=== PATIENT | female | born 1945 | race Caucasian/White ===

== ENCOUNTER 2024-09-09 20:58 | Outpatient (REF) | payer MEDICARE, SELFPAY | END 2024-09-09 20:59 | disposition home or self-care (01) | LOC: LAB 20:58 | PROVIDERS: Visit Provider Obstetrics & Gynecology | DX: Z01.419 Encounter for gynecological examination (general) (routine) without abnormal findings (principal) | CPT/HCPCS: 88175 ==

== ENCOUNTER 2024-09-24 09:50 | Outpatient (OUT) | payer MEDICARE, SELFPAY ==
--- OUTSIDE RECORDS SUMMARY | 2024-09-24 10:05 | XMS_ITS | CCD ---
Author Organization [facility] Care Team Providers Care Tool And Die Inspector Name Role Phone NURIA NIEVES Primary Care Unavailable REQUEST, DR SNEED LISTED Attending Unavaila ble REQUEST, DR SNEED LISTED Admitting Unavaila ble REQUEST, DR SNEED LISTED Consulting Unavaila ble PIOTR ., DR LANDAVERDE Consulting Unavailable NURIA NIEVES Primary Care Unavailable PIOTR ., DR LANDAVERDE Attending Unavailable PIOTR ., DR LANDAVERDE Admitting Unavailable KEELY, DR MARCUM Attending Unavailable KEELY, DR MARCUM Admitting Unavailable NURIA NIEVES Primary Care Unavailable KEELY, DR MARCUM Consulting Unavailable Niurka Riggs MD Unavailable [phone] Niurka Riggs MD Primary Care Provider Daniel TOW MOTOR MECHANIC, Stefania Somers Unavailable NIURKA RIGGS Attending Unavailable NIURKA RIGGS Attending Unavailable SAIMA SALDAÑA Attending Unavailable Medications Current Medications Medication Drug Class(es) Dates Sig (Normalized) Sig (Original) calcium carbonate 500 mg oral tablet (5 sources) calcium carbonat e (Os-Alberto) 1250 (500 Ca) MG tablet every 12 (twelve) hours. Active chondroitin sulfates 1200 mg / glucosamine sulfate 1500 mg oral capsule (5 sources) Glucosamine-Wilian gutierrez 500-400 MG capsule 1 (one) time each day at the same time. Active ciprofloxacin 500 mg oral tablet (2 sources) Quinolone Antimicrobial Start: 09-09-2024 End: 09-16-2024 take 1 tablet by mouth in the morning ciprofloxacin (Cipro) 500 MG tablet Indications: Urinary Tract Infection Take 1 tablet (500 mg) by mouth in the morning and 1 tablet (500 mg) before bedtime. Do all this for 7 days. 14 tablet 09/09/2024 09/16/2024 Active Fish Oils (5 sources) omega-3 (Fish Oi l) 500 MG capsule Oral Active omega-3 (Fish Oi l) 500 MG capsule Oral 0 Active lisinopril 10 mg oral tablet (5 sources) Angiotensin Converting Enzyme Inhibitor Start: 04-02-2024 take 1 tablet by mouth once daily lisinopril 10 MG tablet Indications: Primary hypertension (CMS/HCC) Take 1 tablet (10 mg) by mouth Daily 90 tablet 1 04/02/2024 Active Start: 10-20-2023 take 1 tablet by aron th once daily lisinopril 10 MG tablet Indications: Primary hypertension (CMS/HCC) TAKE ONE TABLET BY MOUTH DAILY 90 tablet 0 10/20/2023 Active loratadine 10 mg oral tablet (4 sources) loratadine (Clar itin) 10 MG tablet Take by mouth Active Multiple Vitamin (multivitam in) capsule (5 sources) Multiple Vitamin (multivitamin) capsule Orally Active Multiple Vitamin (multivitamin) capsule Orally 0 Active red yeast rice 600 mg oral capsule (5 sources) Red Yeast Rice 6 00 MG capsule Orally Active saccharomyces boulardii 250 mg oral capsule (5 sources) Saccharomyces parul ulardii (probiotic) 250 MG capsule Orally Active ubidecarenone 30 mg oral capsule (5 sources) co-enzyme Q-10 3 0 MG capsule 1 (one) time each day at the same time. Active verapamil hydrochloride 240 mg extended release oral tablet (6 sources) Calcium Channel Justino Start: take 1 tablet by mouth once daily verapamil SR (Calan SR) 240 MG ER tablet Indications: Chronic nonintractable headache, unspecified headache type Take 1 tablet (240 mg) by mouth Daily 90 tablet 1 04/02/2024 Active Start: 12-29-2023 take 1 tablet by aron th once daily verapamil SR (Calan SR) 240 MG ER tablet Indications: Chronic nonintractable headache, unspecified headache type TAKE ONE TABLET BY MOUTH DAILY 90 tablet 1 12/29/2023 Active Start: 11-28-2023 End: 12-29-2023 take 1 tablet by mouth once daily verapamil SR (Calan SR) 240 MG ER tablet Indications: Chronic nonintractable headache, unspecified headache type TAKE ONE TABLET BY MOUTH DAILY 30 tablet 0 11/28/2023 12/29/2023 Discontinued Problems Active Problems Problem Classification Problem Date Documented Date Episodic/Chronic Complications of surgical procedures or medical care (1 source) History of parathyroidectomy; 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] Onset: 05-05-2023 05-05-2023 Chronic Disorders of lipid metabolism (5 sources) Hypercholesterolemia; Translations: [Pure hypercholesterolemia, unspecified] Onset: 05-05-2023 05-05-2023 Chronic Essential hypertension (5 sources) Essential hypertension; Translations: [Essential (primary) hypertension] Onset: 05-05-2023 05-05-2023 Chronic Genitourinary symptoms and ill-defined conditions (2 sources) Urinary symptoms ; Translations: [Unspecified symptoms and signs involving the genitourinary system] 09-09-2024 Episodic Headache; including migraine (1 source) Headache; Translations: [Chronic nonintractable headache, unspecified headache type] 12-28-2023 Episodic Malaise and fatigue (5 sources) Fatigue; Translations: [Chronic fatigue, unspecified] Onset: 05-05-2023 05-05-2023 Chronic Menopausal disorders (5 sources) Disorder associated with menstruation AND/OR menopause; Translations: [Menopausal and female climacteric states] Onset: 05-05-2023 05-05-2023 Chronic Osteoporosis (2 sources) Postmenopausal osteoporosis; Translations: [Age-related osteoporosis without current pathological fracture] 09-09-2024 Chronic Other endocrine disorders (5 sources) Hyperparathyroidism; Translations: [Hyperparathyroidism, unspecified] Onset: 05-05-2023 05-05-2023 Chronic Other nervous system disorders (5 sources) Chronic pain; Translations: [Other chronic pain] Onset: 05-05-2023 05-05-2023 Chronic Other nutritional; endocrine; and metabolic disorders (5 sources) Hypercalcemia; Translations: [Hypercalcemia] Onset: 05-05-2023 05-05-2023 Chronic Other screening for suspected conditions (not mental disorders or infectious disease) (6 sources) Encounter for screening for malignant neoplasm of cervix; Translations: [Patient encounter status] Onset: 09-04-2022 Episodic Unclassified (3 sources) CONTACT W/AND (SUSP) EXPOS COVID-19; Translations: [CONTACT W/AND (SUSP) EXPOS COVID-19] Onset: 05-26-2022 Urinary tract infections (2 sources) Urinary tract infectious disease; Translations: [Urinary tract infection, site not specified] 09-09-2024 Episodic Past or Other Problems Problem Classification Problem Date Documented Da te Episodic/Chronic Immunizations and screening for infectious disease (1 source) Encounter for screening for human papillomavirus (HPV); Translations: [ENC SCREENING HUMAN PAPILLOMAVIRUS] Onset: 09-06-2022 Episodic Mood disorders (4 sources) Mood disorders Onset: 04-02-2024 04-02-2024 Other and unspecified benign neoplasm (4 sources) History of polyp of colon; Translations: [History of colon polyps] Onset: 04-27-2019 03-05-2024 Episodic Other bone disease and musculoskeletal deformities (5 sources) Osteopenia; Translations: [Other specified disorders of bone density and structure, unspecified site] Onset: 05-05-2023 05-05-2023 Episodic Other endocrine disorders (5 sources) Primary hyperparathyroidism; Translations: [Primary hyperparathyroidism] Onset: 05-05-2023 Resolved: 04-02-2024 05-05-2023 Chronic Other nutritional; endocrine; and metabolic disorders (5 sources) Decrease in appetite; Translations: [Anorexia] Onset: 05-05-2023 05-05-2023 Episodic Residual codes; unclassified (4 sources) History of parathyroidectomy; Translations: [Other specified postprocedural states] Onset: 05-05-2023 05-05-2023 Episodic Residual codes; unclassified (4 sources) Family history of cancer of colon; Translations: [Family history of malignant neoplasm of digestive organs] Onset: 04-27-2019 03-05-2024 Episodic Spondylosis; intervertebral disc disorders; other back problems (5 sources) Low back pain; Translations: [Low back pain] Onset: 05-05-2023 05-05-2023 Episodic Unclassified (1 source) CONTACT W/AND (SUSP) EXPOS COVID-19; Translations: [CONTACT W/AND (SUSP) EXPOS COVID-19] Onset: 05-22-2022 Results Test Name Value Interpretation Reference Range Facility IGP,APTIMA HPV,AGE GDLNon AGE GDLN ACOG TESTING Note . [facility] Comment on above: TESTS RESULT FLAG UN ITS REF RANGE LAB Clinician Provided Cytology Information Source.............Cervix;Endocervix No. of containers..01 ThinPrep Vial Age Maria Guadalupeo PORTEROG Maki... Note 01 <21 or >65 or no age provided FLAG LEGEND: L-Low Normal,H-High Normal,LL-Alert Low,HH-Alert High <-Panic Low,>-Panic High,A-Abnormal,AA-Critical Abnormal Performed at: 01 =G [facility] [address] [place] [address] Destini Marie MD, PAP IG (IMAGE GUIDED) Note . [facility] Comment on above: TESTS RESULT FLAG UN ITS REF RANGE LAB DIAGNOSIS: 02 NEGATIVE FOR INTRAEPITHELIAL LESION OR MALIGNANCY. CELLULAR CHANGES ASSOCIATED WITH ATROPHY ARE PRESENT. Specimen adequacy: 02 Satisfactory for evaluation. Endocervical and/or squamous metaplastic cells (endocervical component) are present. Performed by: 02 Pb Dorado, Forest Pathology Associate Professor ([facility]) . 02 Note: Note 02 The Pap smear is a screening test designed to aid in the detection of premalignant and malignant conditions of the uterine cervix. It is not a diagnostic procedure and should not be used as the sole means of detecting cervical cancer. Both false-positive and false-negative reports do occur. Test Methodology: Note 02 This liquid based ThinPrep(R) pap test was screened with the use of an image guided system. FLAG LEGEND: L-Low Normal,H-High Normal,LL-Alert Low,HH-Alert High <-Panic Low,>-Panic High,A-Abnormal,AA-Critical Abnormal Performed at: [address] [id number] Destini Marie MD, Performed at: =G - [facility] [address] [id number] Outdoor Adventure Leader: Destini Marie MD, Phone: [phone] Performed at: [facility] [id number] Outdoor Adventure Leader: Destini Marie MD, Phone: [phone] BRUSH-SPATULA CERVIX ENDOCERVIX [facility] Urinalysis macro (dipstick) panel (U)on 09-09-2024 Bilirubin, UA Negative Negative - 4(70) +++ mg/dL [facility] Blood, UA Positive Negative - 50 Andres/mcL [facility] Comment on above: trace Clarity, UA Clear [facility] Color, UA Yellow [facility] Glucose, UA Negative Negative - 1999(110) ++++ mg/dL [facility] Interpretation and review of laboratory results Abnormal [facility] Ketones, UA Negative Negative - 160(16) ++++ mg/dL [facility] Leukocytes, UA Trace Negative - 500+++ Brent/mcL [facility] Nitrite, UA Negative Negative - Positive [facility] pH, UA 7 5 - 9 [facility] Protein, UA Negative Negative - 1999(20) ++++ mg/dL [facility] Spec Grav, UA 1.015 1 - 1.03 [facility] Urobilinogen, UA 0.2 0.2 - 12 mg/dL [facility] CBC AUTO DIFFon 01-28-2023 BASO # 0.0 103/ul Normal 0.0-0.1 [facility] Comment on above: Performed By: #### D ATCBC #### [facility] [address] [place] [address] Dr. Zenon Carrillo Basophils/100 WBC (Bld) 0.8 % Normal 0.2-2.0 [facility] Comment on above: Performed By: #### D ATCBC #### [facility] [address] [place] [address] Dr. Zenon Carrillo EO # 0.1 103/ul Normal 0.0-0.7 [facility] Comment on above: Performed By: #### D ATCBC #### [facility] [address] [place] [address] Dr. Zenon Carrillo Eosinophils/100 WBC (Bld) 2.2 % Normal 0.9-7.0 [facility] Comment on above: Performed By: #### D ATCBC #### [facility] [address] [place] [address] Dr. Zenon Carrillo Erythrocyte distribution width (RBC) [Ratio] 12.2 % Normal 11.0-15.0 [facility] Comment on above: Performed By: #### D ATCBC #### [facility] [address] [place] [address] Dr. Zenon Carrillo Hematocrit (Bld) [Volume fraction] 40.0 % Normal 36.0-48.0 [facility] Comment on above: Performed By: #### D ATCBC #### [facility] [address] [place] [address] Dr. Zenon Carrillo Hemoglobin (Bld) [Mass/Vol] 13.5 g/dL Normal 12.0-16.0 [facility] Comment on above: Performed By: #### D ATCBC #### [facility] [address] [place] [address] Dr. Zenon Carrillo IG # 0.02 10e3/ul Normal 0.00-0.03 [facility] Comment on above: Performed By: #### D ATCBC #### [facility] [address] [place] [address] Dr. Zenon Carrillo IG % 0.4 % Normal 0.0-0.5 [facility] Comment on above: Performed By: #### D ATCBC #### [facility] [address] [place] [address] Dr. Zenon Carrillo LYMPH # 1.0 103/ul Critically low 1.2-3.8 [facility] Comment on above: Performed By: #### D ATCBC #### [facility] [address] [place] [address] Dr. eZnon Carrillo Lymphocytes/100 WBC (Bld) 19.8 % Critically low 20.5-60.0 [facility] Comment on above: Performed By: #### D ATCBC #### [facility] [address] [place] [address] Dr. Zenon Carrillo MCH (RBC) [Entitic mass] 31.5 pg Normal 26.7-34.0 [facility] Comment on above: Performed By: #### D ATCBC #### [facility] [address] [place] [address] Dr. Zenon Carrillo MCHC (RBC) [Mass/Vol] 33.8 g/dL Normal 29.9-35.2 [facility] Comment on above: Performed By: #### D ATCBC #### [facility] [address] [place] [address] Dr. Zenon Carrillo MCV (RBC) [Entitic vol] 93.5 fL Normal 81.0-99.0 [facility] Comment on above: Performed By: #### D ATCBC #### [facility] [address] [place] [address] Dr. Zenon Carrillo MONO # 0.4 103/ul Normal 0.3-0.8 [facility] Comment on above: Performed By: #### D ATCBC #### [facility] [address] [place] [address] Dr. Zenon Carrillo Monocytes/100 WBC (Bld) 7.7 % Normal 1.7-12.0 [facility] Comment on above: Performed By: #### D ATCBC #### [facility] [address] [place] [address] Dr. Zenon Carrillo NEUT # 3.4 103/ul Normal 1.4-6.5 [facility] Comment on above: Performed By: #### D ATCBC #### [facility] [address] [place] [address] Dr. Zenon Carrillo Neutrophils/100 WBC (Bld) 69.1 % Normal 43.0-75.0 [facility] Comment on above: Performed By: #### D ATCBC #### [facility] [address] [place] [address] Dr. Zenon Carrillo Platelet mean volume (Bld) [Entitic vol] 8.3 fL Critically low 9.5-13.5 [facility] Comment on above: Performed By: #### D ATCBC #### [facility] [address] [place] [address] Dr. Zenon Carrillo PLT 303 103/ul Normal 150-450 [facility] Comment on above: Performed By: #### D ATCBC #### [facility] [address] [place] [address] Dr. Zenon Carrillo RBC 4.28 106/ul Normal 4.20-5.40 [facility] Comment on above: Performed By: #### D ATCBC #### [facility] [address] [place] [address] Dr. Zenon Carrillo WBC 4.9 103/ul Normal 4.0-11.0 [facility] Comment on above: Performed By: #### D ATCBC #### [facility] [address] [place] [address] Dr. Zenon Carrillo FERNANDEZ - VITAMIN Don 01-28-2023 VIT D 25-OH 73.7 ng/mL Normal [facility] Comment on above: Performed By: #### D ATBMP, DATVITD #### [facility] [address] [place] [address] Dr. Zenon Carrillo VIT D RANGES SEE BELOW Normal [facility] Comment on above: Result Comment: <20 ng/mL Vit D deficient 20 - <30 ng/mL Vit D insufficient 30 - 100 ng/mL Vit D sufficient >100 ng/mL Potential Toxicity Performed By: #### D ATBMP, DATVITD #### [facility] [address] [place] [address] Dr. Zenon Carrillo FERNANDEZ- BMP WITH LIPIDon 2022 Anion gap [Moles/Vol] 14.5 mmol/L Normal [facility] Comment on above: Performed By: #### D ATBMP, DATVITD #### [facility] [address] [place] [address] Dr. Zenon Carrillo Calcium [Mass/Vol] 9.3 mg/dL Normal 8.5-10.1 [facility] Comment on above: Performed By: #### D ATBMP, DATVITD #### [facility] [address] [place] [address] Dr. Zenon Carrillo Chloride [Moles/Vol] 100 mmol/L Normal 98-107 [facility] Comment on above: Performed By: #### D ATBMP, DATVITD #### [facility] [address] [place] [address] Dr. Zenon Carrillo Cholesterol [Mass/Vol] 245 mg/dL Critically high <=200 [facility] Comment on above: Performed By: #### D ATBMP, DATVITD #### [facility] [address] [place] [address] Dr. Zenon Carrillo Cholesterol in HDL [Mass/Vol] 103 mg/dL Critically high 40-60 [facility] Comment on above: Performed By: #### D ATBMP, DATVITD #### [facility] [address] [place] [address] Dr. Zenon Carrillo Cholesterol in LDL [Mass/Vol] 129.6 mg/dL Normal [facility] Comment on above: Performed By: #### D ATBMP, DATVITD #### [facility] [address] [address] [address] Zenon Carrillo CO2 [Moles/Vol] 26.6 mmol/L Normal 21.0-32.0 [facility] Comment on above: Performed By: #### D ATBMP, DATVITD #### [facility] [address] [address] [address] Zenon Carrillo Creatinine [Mass/Vol] 0.68 mg/dL Normal 0.55-1.02 [facility] Comment on above: Performed By: #### D ATP, DATVITD #### [facility] [address] [address] [address] Zenon Carrillo EGFR-AF HONG KONGER >60 Normal >=60 [facility] Comment on above: Performed By: #### D ATP, DATVITD #### [facility] [address] [place] [address] Dr. Zenon Carrillo EGFR-NON AF [place]ONG [place]ER >60 Normal >=60 [facility] Comment on above: Performed By: #### D ATP, DATVITD #### [facility] [address] [address] [address] Zenon Carrillo Glucose [Mass/Vol] 104 mg/dL Normal 74-106 [facility] Comment on above: Performed By: #### D ATP, DATVITD #### [facility] [address] [address] [address] Zenon Carrillo HDL NORMAL > or = 60 mg/dl - LO W CARDIOVASCULAR RISK <40 mg/dl - HIGH CARDIOVASCULAR RISK Normal [facility] Comment on above: Performed By: #### D ATP, DATVITD #### [facility] [address] [address] [address] Zenon Carrillo LDL CALC NORMAL SEE BELOW Normal [facility] Comment on above: Result Comment: <100 mg/dl OPTIMAL 100 - 129 mg/dl NEAR OR ABOVE OPTIMAL 130 - 159 mg/dl BORDERLINE HIGH 160 - 189 mg/dl HIGH >190 mg/dl VERY HIGH Performed By: #### D ATBMP, DATVITD #### [facility] [address] [address] [address] Zenon Carrillo Potassium [Moles/Vol] 4.3 mmol/L Normal 3.5-5.1 [facility] Comment on above: Performed By: #### [facility], [facility] #### [facility] [address] [address] [address] Zenon Carrillo Sodium [Moles/Vol] 137 mmol/L Normal 136-145 [facility] Comment on above: Performed By: #### D [facility], [facility] #### [facility] [address] [address] [address] Zenon Carrillo Triglyceride [Mass/Vol] 62 mg/dL Normal <=150 [facility] Comment on above: Performed By: #### D [facility], [facility] #### [facility] [address] [place] [address] Dr. Zenno Carrillo Urea nitrogen [Mass/Vol] 18.0 mg/dL Normal 7.0-18.0 [facility] Comment on above: Performed By: #### D [facility], [facility] #### [facility] [address] [address] [address] Zenon Carrillo Urea nitrogen/Creatinine [Mass ratio] 26.4 mg/mg [facility] Comment on above: Performed By: #### D [facility], [facility] #### [facility] [address] [place] [address] Dr. Zenon Carrillo VLDL CALC 12.4 mg/dL Normal [facility] Comment on above: Performed By: #### D [facility], [facility] #### [facility] [address] [place] [address] Dr. Zenon Carrillo PAP ACOG PANEL 2: 30 to 65on 09-11-2022 . . Normal [facility] Comment on above: Result Comment: Perf ormed at: [facility] Performed By: #### [id number] #### [facility] [address] [place] [address] Dr. Zenon Carrillo Age Gdln ACOG Testing Comment Normal [facility] Comment on above: Result Comment: <21 or >65 or no age provided Performed By: #### [id number] #### [facility] [address] [place] [address] Dr. Zenon Carrillo DIAGNOSIS: Comment Normal [facility] Comment on above: Result Comment: NEGA TIVE FOR INTRAEPITHELIAL LESION OR MALIGNANCY. Performed at: [facility] Performed By: #### [id number] #### [facility] [address] [place] [address] Dr. Zenon Carrillo Methodology: Comment Normal [facility] Comment on above: Result Comment: This liquid based ThinPrep(R) pap test was screened with the use of an image guided system. Performed at: [facility] Performed By: #### [id number] #### [facility] [address] [place] [address] Dr. Zenon Carrillo Note: Comment Normal [facility] Comment on above: Result Comment: The Pap smear is a screening test designed to aid in the detection of premalignant and malignant conditions of the uterine cervix. It is not a diagnostic procedure and should not be used as the sole means of detecting cervical cancer. Both false-positive and false-negative reports do occur. . Performed at: [facility] Performed By: #### [id number] #### [facility] [address] [place] [address] Dr. Zenon Carrillo Performed by: Comment Normal [facility] Comment on above: Result Comment: Pablo Brown, Forest Pathology Associate Professor (ASCP) Performed at: [facility] Performed By: #### [id number] #### [facility] [address] [place] [address] Dr. Zenon Carrillo Specimen adequacy: Comment Normal [facility] Comment on above: Result Comment: Sati sfactory for evaluation. Endocervical and/or squamous metaplastic cells (endocervical component) are present. Performed at: [facility] Performed By: #### [id number] #### [facility] [address] [place] [address] Dr. Zenon Carrillo Cytology Cervical or vaginal smear or scraping studyon 09-04-2022 [facility] e Covid-19 PCR (CVDTBH)on SARS-CoV-2 (COVID-19) RNA DEVEN+probe Ql (Unsp spec) Not detected Normal NOT DETECTED [facility] Comment on above: Result Comment: This test is not yet approved or cleared by the [place] FDA. When there are no FDA-approved or cleared tests available, and other criteria are met, FDA can make tests available under an emergency access mechanism called an Emergency Use Authorization (EUA). The EUA for this test is supported by the [place] of Health and Human Service's (HHS's) declaration that circumstances exist to justify the emergency use of in vitro diagnostics for the detection and/or diagnosis of the virus that causes COVID-19. This EUA will remain in effect (meaning this test can be used) for the duration of the COVID-19 declaration justifying emergency of IVDs, unless it is terminated or revoked by FDA (after which the test may no longer be used). When diagnostic testing is negative, the possibility of a false negative should be considered in the context of a patient's recent exposures and the presence of clinical signs and symptoms consistent with SARS-CoV-2. Performed By: #### [facility] #### [facility] [address] [place] [address] Dr. Zenon Carrillo XR Bone Density (DEXA)on XR Bone Density (DEXA) EXAM: Dual Femur Bone Density FINDINGS: Dual Femur bone density obtained with a [facility] whole body system: [facility]-Matched Total(g/cm2)(%)T-Scor e(%)Z-Score [id number] Impression: The mean BMD and corresponding T-score indicated above indicate Low Bone Mass (Osteopenia) and places the patient at a mild to moderate increased risk for fracture. There may be a future risk of developing osteoporosis. Findings are borderline osteoporosis. EXAM: AP Lumbar Bone Density FINDINGS: AP Spine bone density obtained with a [employer] whole body system: [facility]ult[facility] ge-Matched Total(g/cm2)(%)T-Scor e(%)Z-Score L1-L40.68798-6.42699. 2 Impression: The mean BMD and corresponding T-score indicated above indicate Low Bone Mass (Osteopenia) and places the patient at a mild to moderate increased risk for fracture. There may be a future risk of developing osteoporosis. Comment: The T-score is the primary focus of the interpretation of a patient???s bone mineral density measurement. The T-score is the number of standard deviations an individual is above or below the mean value for a young female having normal bone mass. The WHO defines osteoporosis based on the T-score value??? +1.0 to ???0.9: Normal bone mass -1.0 to -2.5: Osteopenia and thus may be at future risk of fracture -2.6 to ???5: Osteoporosis and ???at significantly increased risk of fracture??? A Z-Score of -2.0 or lower is defined as ???below the expected range for age??? and a Z-Score above -2.0 is ???within the expected range for age.??? Osteoporosis cannot be diagnosed in men under the age of 50 on the basis of BMD alone. Per 2019 ISCD guidelines, Z-Scores (not T-Scores) are preferred when reporting data in premenopausal females and males less than 50 years of age. Report reported and signed by Bennett Sauer on 02/07/2022 1027 Normal [facility] Basic Metabolic Panelon 01-15 Anion gap [Moles/Vol] 15 mmol/L Normal 12-20 [facility] Comment on above: Result Comment: Effe ctive 11/22/2019 reference range changed. Performed By: #### B MP #### [facility] [address], [place] [id number] Calcium [Mass/Vol] 9.4 mg/dL Normal 8.6-10.2 [facility] Comment on above: Performed By: #### B MP #### [facility] [address], [place] [id number] Chloride [Moles/Vol] 96 mmol/L Low 98-107 [facility] Comment on above: Performed By: #### B MP #### [facility] [address], [place] [id number] CO2 [Moles/Vol] 27 mmol/L Normal 20-31 [employer] Comment on above: Performed By: #### B MP #### [facility] [address], [place] [id number] Creatinine [Mass/Vol] 0.7 mg/dL Normal 0.6-1.4 [facility] Specialist Comment on above: Performed By: #### B MP #### [facility] [address], [place] [id number] eGFRAA 107 mL/min/1.73m2 Normal >60 [facility] Specialist Comment on above: Performed By: #### B MP #### [facility] [address], [place] [id number] eGFRNAA 88 mL/min/1.73m2 Normal >60 [facility] Specialist Comment on above: Performed By: #### B MP #### [facility] [address], [place] [id number] Glucose [Mass/Vol] 95 mg/dL Normal 65-99 [facility] Specialist Comment on above: Result Comment: For FASTING Glucose --- ADA reference ranges: Normal 65-99 mg/dl Prediabetes 100-125 Diabetes >/= 126 Performed By: #### B MP #### [facility] [address], [place] [id number] Potassium [Moles/Vol] 4.3 mmol/L Normal 3.5-5.5 [facility] Specialist Comment on above: Performed By: #### B MP #### [facility] [address], [place] [id number] Sodium [Moles/Vol] 134 mmol/L Low 135-146 [facility] Specialist Comment on above: Performed By: #### B MP #### [facility] [address], [place] [id number] Urea nitrogen [Mass/Vol] 18 mg/dL Normal 7-25 [facility] Specialist Comment on above: Performed By: #### B MP #### [facility] [address], [place] [id number] Vital Signs Date Time Vital Sign Value Performing Clinician Ivonne [email or web address] 09-09-2024 08:50-0400 Body mass index (BMI) [Ratio] 24.72 kg/m2 Saima Saldaña DO Work Phone: [facility] 09-09-2024 08:50-0400 Body weight 65.32 kg Saima Piotr DO Work Phone: [facility] 09-09-2024 08:50-0400 Diastolic blood pressure 74 mm[Hg] Saima Piotr DO Work Phone: [facility] 09-09-2024 08:50-0400 Systolic blood pressure 120 mm[Hg] Saima Piotr DO Work Phone: [facility] Encounters Encounter Date Encounter Type Care Provider Facility Start: 09-09-2024 End: 09-09-2024 Bamboo flowsheet Saima Piotr DO Work Phone: [facility] Start: 09-09-2024 End: 09-17-2024 Bamboo flowsheet Saima Piotr DO Work Phone: [facility] Start: 09-09-2024 End: 09-17-2024 Clinisync Result Encounter Saima Piotr DO Work Phone: [facility] External Department Unsolicited Start: 09-09-2024 End: 09-09-2024 ambulatory SAIMA PIOTR Not Available Start: 09-09-2024 End: 09-09-2024 Patient encounter procedure Saima Piotr DO Work Phone: [facility] Comment on above: Well woman exam with routine gynecological exam; Breast cancer screening by mammogram; Osteoporosis, post-menopausal (CMS/HCC); Urinary tract infection without hematuria, site unspecified; UTI symptoms Start: 04-02-2024 End: 04-02-2024 ambulatory NIURKA RIGGS Not Available Start: 03-05-2024 End: 03-05-2024 ambulatory NIURKA RIGGS Not Available Start: 12-28-2023 Refill Niurka hurley MD Work Phone: [facility] Comment on above: Chronic nonintractab le headache, unspecified headache type Start: 01-28-2023 End: 01-29-2023 ambulatory [facility] Facility: Start: 09-04-2022 End: 09-04-[address] SAIMA SALDAÑA . Facility:[facility] Start: 05-22-2022 End: 05-23-[address] NIURKA RIGGS Facility:[facility] Procedures Date Procedure Procedure Detail Performing Clinician Start: 09-09-2024 Urnls dip stick/tabl et rgnt non-auto w/o micrscp Saima Piotr DO Work Phone: Start: 09-09-2024 IGP,APTIMA HPV,AGE GDLN [facility] DO Work Phone: Start: 09-04-2022 Cytp cerv/vag auto t hin layer prep mnl screen [facility] DO Work Phone: Plan of Treatment Date Care Activity Detail Author Start: 09-13-2025 End: 09-13-2025 Patient encounter procedure 09/13/2025 8:30 AM EDT Office Visit [facility] [address] [place] [address] Saima Saldaña, DO [address] [place] [address] [facility] Start: 09-09-2024 End: 09-09-2025 DXA Skeletal system Views for bone density DEXA bone density Imaging Routine Osteoporosis, post-menopausal ([facility]/HCC) Expected: 09/09/2024 (Approximate), Expires: 09/09/2025 [facility] Comment on above: Expected: 09/09/2024 (Approximate), Expires: 09/09/2025 Start: 09-09-2024 End: 11-09-2025 MG Breast - bilateral Screening Bilateral screening mammogram Imaging Routine Breast cancer screening by mammogram Expected: 09/09/2024 (Approximate), Expires: 11/09/2025 [facility] Work Phone: Comment on above: Expected: 09/09/2024 (Approximate), Expires: 11/09/2025 Start: 09-09-2024 End: 09-09-2025 Urinalysis complete panel - Urine Urinalysis with reflex microscopic Lab Routine UTI symptoms Expected: 09/09/2024 (Approximate), Expires: 09/09/2025 [facility] Comment on above: Expected: 09/09/2024 (Approximate), Expires: 09/09/2025 Start: 09-09-2024 End: 09-09-2024 Patient encounter procedure 09/09/2024 8:30 AM EDT Office Visit [facility] [address] [place] [address] Saima Saldaña DO [address] [place] [address] [facility] Start: 07-18-2024 Influenza vaccination Influenza Vacc ine (#1) [facility] Bacteria identified in Urine by Culture Urine culture Microbiology Routine Urinary tract infection without hematuria, site unspecified Ordered: 09/09/2024 [facility] Comment on above: Ordered: 09/09/2024 THIN PREP TIS PAP AN D HR HPV DNA THIN PREP TIS PAP AND HR HPV DNA Pathology and Cytology Routine Well woman exam with routine gynecological exam Ordered: 09/09/2024 [facility] Comment on above: Ordered: 09/09/2024 Immunizations Immunization Date Immunization Notes Care Provider [facility] 09-02-2023 influenza, high dose seasonal, preservative-free Saima Saldaña DO Work Phone: [facility] 09-02-2023 influenza virus vacc ine, unspecified formulation Saima Piotr DO Work Phone: [facility] 09-02-2022 influenza, injectabl e, quadrivalent, preservative free Niurka Riggs MD Work Phone: [facility] 09-10-2021 influenza, injectabl e, quadrivalent, preservative free Niurka Riggs MD Work Phone: [facility] 07-20-2021 tetanus toxoid, redu jason diphtheria toxoid, and acellular pertussis vaccine, adsorbed Niurka Riggs MD Work Phone: [facility] 11-30-2020 zoster vaccine recombinant J deepti Riggs MD Work Phone: [facility] 09-04-2020 influenza, injectabl e, quadrivalent, preservative free Niurka Riggs MD Work Phone: [facility] 09-16-2019 influenza, injectabl e, quadrivalent, preservative free Niurka Riggs MD Work Phone: [facility] 09-04-2018 influenza, injectabl e, quadrivalent, contains preservative Niurka Riggs MD Work Phone: [facility] 09-02-2018 Influenza, High-dose Seasonal, Quadrivalent, Preservative Free Niurka Riggs MD Work Phone: [facility] 08-27-2017 influenza, injectabl e, quadrivalent, preservative free Niurka Riggs MD Work Phone: [facility] 08-26-2017 influenza, injectabl e, quadrivalent, contains preservative Niurka Riggs MD Work Phone: [facility] 06-26-2017 zoster vaccine, live Jerome Riggs MD Work Phone: [facility] 06-06-2016 pneumococcal conjuga te vaccine, 13 valent Niurka Riggs MD Work Phone: [facility] 10-03-2015 influenza, injectabl e, quadrivalent, preservative free Niurka Riggs MD Work Phone: [facility] 09-04-2015 seasonal influenza, intradermal, preservative free Niurka Riggs MD Work Phone: [facility] 08-28-2014 influenza, seasonal, injectable, preservative free Niurka Riggs MD Work Phone: [facility] 09-10-2013 influenza virus vacc ine, whole virus Niurka Riggs MD Work Phone: [facility] 09-04-2012 influenza, seasonal, injectable Niurka Riggs MD Work Phone: [facility] 09-02-2012 seasonal influenza, intradermal, preservative free Niurka Riggs MD Work Phone: [facility] 08-29-2011 influenza, seasonal, injectable Niurka Riggs MD Work Phone: [facility] 08-29-2011 pneumococcal polysaccharide vaccine, 23 valent Niurka Riggs MD Work Phone: [facility] 09-13-2010 zoster vaccine, live Jerome Riggs MD Work Phone: [facility] 08-29-2010 influenza virus vacc ine, whole virus Niurka Riggs MD Work Phone: [facility] 11-17-2009 tetanus and diphther ia toxoids, adsorbed, preservative free, for adult use (5 Lf of tetanus toxoid and 2 Lf of diphtheria toxoid) Niurka Riggs MD Work Phone: [facility] 11-17-2009 tetanus toxoid, redu jason diphtheria toxoid, and acellular pertussis vaccine, adsorbed Niurka Riggs MD Work Phone: [facility] 08-25-2009 influenza virus vacc ine, whole virus Niurka Riggs MD Work Phone: [facility] 09-04-2007 influenza virus vacc ine, whole virus Niurka Riggs MD Work Phone: [facility] Payers Date Payer Category Payer Private Health Insurance A[employer] In mber [id number] 2022 Unknown AARP AARP [id number] 2022-Present [address] [place] [address] [id number] 2022 Unknown [id number] 2010 Medicare [id number] 1959 Medicare [id number] 1959 Self-pay 1959 Unknown [id number] 1945 Unknown [id number] 1945 Unknown [id number] 1945 Unknown [id number] 1945 Unknown [id number] 1945 Unknown [id number] Unknown [id number] Social History Date Type Detail Facility Start: 05-05-2023 Tobacco smoking status NHIS Never sm oked tobacco [facility] Start: 05-05-2023 Tobacco use and exposure Smoke less tobacco non-user [facility] Start: 09-08-2023 End: 09-09-2024 Alcohol intake Current drinker of alcohol (finding) [facility] Start: 09-08-2023 End: 03-04-2024 Alcohol intake [facility] Start: 05-05-2023 End: 03-04-2024 Alcohol Use Disorder Identification Test - Consumption [AUDIT-C] [facility] How often to you hav e a drink containing alcohol? Monthly or less [facility] How many standard dr inks containing alcohol do you have on a typical day? 1 or 2 [facility] How often do you hav e 6 or more drinks on 1 occasion? Never [facility] Start: 05-14-2023 Alcohol Comment Caffeine intak e: tea, coffee [facility] Start: 1945 Sex Assigned At Not on file [facility] Start: 01-29-2023 Gender identity Identifies as female gender (finding) [facility] Active Member of [facility] bs or Organizations Not on file [facility] Are you now , , , , never or living with a partner? [facility] Do you feel stress - tense, restless, nervous, or anxious, or unable to sleep at night because your mind is troubled all the time - these days [OSQ] Not at all [facility] (I/We) worried wheth er (my/our) food would run out before (I/we) got money to buy more. Never true [facility] In the past 12 month s, was there a time when you were not able to pay the mortgage or rent on time? No [facility] Start: 04-02-2024 Alcohol Comment Caffeine intak e: 1-2 cups [facility] History of Present illness Narrative 09-09-2024 Eden Bell LPN - 09/09/2024 8:30 AM EDT Note Date & Type Note Facility 09-09-2024 History of Presen t illness Narrative Reason for Appointment: Patient ID: Sully Garland is a 79 y.o. female who presents for Gynecologic Exam Patient presents today for Annual Exam. MEDICATIONS Current Outpatient Medications Medication Instructions calcium carbonate (Os-Alberto) 1250 (500 Ca) MG tablet Every 12 hours ciprofloxacin (CIPRO) 500 mg, Oral, 2 times daily co-enzyme Q-10 30 MG capsule Every 24 hours Glucosamine-Chondroitin 500-400 MG capsule Every 24 hours lisinopril 10 mg, Oral, Daily loratadine (Claritin) 10 MG tablet Oral Multiple Vitamin (multivitamin) capsule Orally omega-3 (Fish Oil) 500 MG capsule Oral Red Yeast Rice 600 MG capsule Orally Saccharomyces boulardii (probiotic) 250 MG capsule Orally verapamil SR (CALAN SR) 240 mg, Oral, Daily ALLERGIES No Known Allergies PROBLEMS Active Ambulatory Problems Diagnosis Date Noted Chronic fatigue 05/05/2023 Decrease in appetite 05/05/2023 Hypercalcemia 05/05/2023 Hypercholesterolemia (CMS/HCC) 05/05/2023 Hyperparathyroidism (CMS/HCC) 05/05/2023 Low back pain 05/05/2023 Osteopenia 05/05/2023 Other chronic pain 05/05/2023 Postmenopausal syndrome 05/05/2023 Primary hypertension (CMS/HCC) 05/05/2023 Status post parathyroidectomy 05/05/2023 Family history of colon cancer in mother 04/27/2019 History of colon polyps 04/27/2019 Resolved Ambulatory Problems Diagnosis Date Noted Primary hyperparathyroidism (CMS/HCC) 05/05/2023 Past Medical History: Diagnosis Date Hypertension (CMS/HCC) Mammogram abnormal Multiple thyroid nodules (CMS/HCC) Sialadenitis HISTORY PAST MEDICAL HISTORY SOCIAL HISTORY Past Medical History: Diagnosis Date Chronic fatigue 05/05/2023 Hypercalcemia 05/05/2023 Hypercholesterolemia (CMS/HCC) 05/05/2023 Hyperparathyroidism (CMS/HCC) 05/05/2023 Hypertension (CMS/HCC) Mammogram abnormal right breast Multiple thyroid nodules (CMS/HCC) Osteopenia 05/05/2023 Other chronic pain 05/05/2023 Postmenopausal syndrome 05/05/2023 x5 Primary hyperparathyroidism (CMS/HCC) 05/05/2023 Primary hypertension (CMS/HCC) 05/05/2023 Sialadenitis Status post parathyroidectomy 05/05/2023 Social History Tobacco Use Smoking status: Never Smokeless tobacco: Never Substance Use Topics Alcohol use: Yes Alcohol/week: 1.0 - 2.0 standard drink of alcohol Types: 1 - 2 Glasses of wine per week Comment: Caffeine intake: 1-2 cups Drug use: Never FAMILY HISTORY Family History Problem Relation Name Age of Onset Cancer Mother Peg Cancer Father RJ SURGICAL HISTORY Past Surgical History: Procedure Laterality Date BREAST BIOPSY Left 1971 BREAST BIOPSY Right 1961 CATARACT EXTRACTION Bilateral 10/2017 DILATION AND CURETTAGE OF UTERUS 2013 DILATION AND CURETTAGE OF UTERUS 2017 PARATHYROID GLAND SURGERY VARICOSE VEIN SURGERY 2000 REVIEW OF SYSTEMS Review of Systems: Review of Systems All other systems reviewed and are negative. OBJECTIVE Objective: Physical Exam Constitutional: Appearance: Normal appearance. She is well-developed. Genitourinary: Vulva normal. Cardiovascular: Rate and Rhythm: Normal rate and regular rhythm. Pulmonary: Effort: Pulmonary effort is normal. Breath sounds: Normal breath sounds. Abdominal: General: Bowel sounds are normal. There is no distension. Palpations: Abdomen is soft. Tenderness: There is no abdominal tenderness. There is no guarding or rebound. Musculoskeletal: General: No swelling. Normal range of motion. Right lower leg: No edema. Left lower leg: No edema. Neurological: Mental Status: She is alert and oriented to person, place, and time. Skin: General: Skin is warm and dry. Psychiatric: Mood and Affect: Mood normal. Behavior: Behavior normal. Vitals and nursing note reviewed. Exam conducted with a five roll refiner batch mixer present. Vitals: Estimated body mass index is 24.72 kg/m as calculated from the following: Height as of 04/02/24: 5' 4 . Weight as of this encounter: 144 lb. BP: 120/74 No LMP recorded. Patient is postmenopausal. ASSESSMENT & PLAN ICD-10-CM 1. Well woman exam with routine gynecological exam Z01.419 THIN PREP TIS PAP AND HR HPV DNA 2. Breast cancer screening by mammogram Z12.31 Bilateral screening mammogram Bilateral screening mammogram 3. Osteoporosis, post-menopausal (CMS/HCC) M81.0 DEXA bone density 4. Urinary tract infection without hematuria, site unspecified N39.0 Urine culture POCT urinalysis dipstick manually resulted 5. UTI symptoms R39.9 Urinalysis with reflex microscopic ciprofloxacin (Cipro) 500 MG tablet Annual Exam: Patient presents today for an annual exam. Patient states she is doing well and has no complaints. Pap was obtained without difficulty. Pt requests a UA to be done. UA was done in office and came back positive for blood.Talked with pt and decided that we are going to put her on an antibiotic and then have her do a UA at the hospital and if that comes back positive, we will culture it. Pt is agreeable to this. Orders Placed This Encounter Procedures Urine culture Bilateral screening mammogram DEXA bone density Urinalysis with reflex microscopic POCT urinalysis dipstick manually resulted Follow Up: Patient is to return in one year for annual unless needed otherwise. Documented by Eden Bell LPN on behalf of: Saima Saldaña DO documented in this encounter [facility] Telephone encounter Note 12-29-2023 Telephone Encounter - Niurka Riggs MD - 12/29/2023 11:33 AM EST Note Date & Type Note Facility 12-29-2023 Telephone encount er Note Refills sent. [facility] Note 12-29-2023 Telephone Encounter - Niurka Riggs MD - 12/29/2023 11:33 AM EST Note Date & Type Note Facility 12-29-2023 Miscellaneous Notes Formattin g of this note might be different from the original. Refills sent. documented in this encounter [facility] Evaluation note Note Date & Type Note Facility Evaluation note Diagnosis Chronic nonintractable headache, unspecified headache type documented in this encounter [facility] Evaluation note Note Date & Type Note Facility Evaluation note Diagnosis Wellness examination- Primary Primary hypertension (CMS/HCC) Unspecified essential hypertension Chronic nonintractable headache, unspecified headache type Well woman exam with routine gynecological exam Routine gynecological examination Breast cancer screening by mammogram Osteoporosis, post-menopausal (CMS/HCC) Senile osteoporosis Urinary tract infection without hematuria, site unspecified UTI symptoms documented in this encounter [facility] Summary Purpose Family History No Family History Records FoundNo Family History Records FoundNo Family History Records Found Advance Directives No Advanced Directives Records FoundNo Advanced Directives Records FoundNo Advanced Directives Records Found Additional Source Comments INFORMATION SOURCE (unrecogn ized section and content) DATE CREATED AUTHOR 02/08/2022 [facility] dical Specialist DATE CREATED AUTHOR AUTHOR'S ORGANIZ ATION 01/29/2023 [facility] p[facility] DATE CREATED AUTHOR AUTHOR'S ORGANIZ ATION 09/10/2024 [facility] dical Specialists EPIC Reason for Visit (unrecogniz ed section and content) Reason Comments Med Refill Reason Comments Gynecologic Exam Care Teams (unrecognized sec tion and content) Tool And Die Inspector Relationship Specialty Start Date End Date Niurka Riggs MD [address] [place] [address] PCP - ACO Reach 04/10/23 Niurka Riggs MD [address] [place] [address] PCP - General Family Medicine 05/05/23 Stefania Sanchez NP [address] [place] [address] Nurse Practitioner Family Medicine 05/05/23 Tool And Die Inspector Relationship Specialty Start Date End Date Niurka Riggs MD [address] [place] [address] PCP - ACO Reach 04/10/23 Niurka Riggs MD [address] [place] [address] PCP - General Family Medicine 05/05/23 Stefania Sanchez NP [address] [place] [address] Nurse Practitioner Family Medicine 05/05/23 Tool And Die Inspector Relationship Specialty Start Date End Date Niurka Riggs MD [address] [place] [address] PCP - ACO Reach 04/10/23 Niurka Riggs MD [address] [place] [address] PCP - General Family Medicine 05/05/23 Stefania Sanchez NP [address] [place] [address] Nurse Practitioner Family Medicine 05/05/23 Tool And Die Inspector Relationship Specialty Start Date End Date Niurka Riggs MD [address] [place] [address] PCP - ACO Reach 04/10/23 Niurka Riggs MD [address] [place] [address] PCP - General Family Medicine 05/05/23 Stefania Sanchez NP [address] [place], [place] [id number] Nurse Practitioner Family Medicine 05/05/23 FOR RECORDS PERTAINING TO PATIENTS WHO ARE OR HAVE BEEN ENROLLED IN A CHEMICAL DEPENDENCY/SUBSTANCEABUSE PROGRAM, SOME INFORMATION MAY BE OMITTED. This clinical summary was aggregated from multiple sources. Caution should be exercised in using it in the provision of clinical care. This summary normalizes information from multiple sources, and as a consequence, information in this document may materially change the coding, format and clinical context of patient data. In addition, data may be omitted in some cases. CLINICAL DECISIONS SHOULD BE BASED ON THE PRIMARY CLINICAL RECORDS. [facility] [employer] [facility]. provides no warranty or guarantee of the accuracy or completeness of information in this document.
[2024-09-24 10:12] LABS: Bilirubin Urine NEGATIVE (NEGATIVE); Blood Urine NEGATIVE (NEGATIVE); Clarity Urine CLEAR (CLEAR); Color Urine LT. YELLOW (YELLOW); Glucose Urine UA NEGATIVE (NEGATIVE); Ketones Urine NEGATIVE (NEGATIVE); Leukocyte Esterase Urine NEGATIVE (NEGATIVE); Nitrite Urine NEGATIVE (NEGATIVE); Protein Urine NEGATIVE (NEG/TRACE); Urobilinogen Urine 0.2 EU/dL (0.2-1.0); pH Urine 6.5 (5.0-9.0)
[2024-09-24 10:16] LABS: Urine Microscopic Indicated NO
== END 2024-09-24 09:51 | disposition home or self-care (01) ==
LOC: LAB 09:50
PROVIDERS: Visit Provider Obstetrics & Gynecology
DX: R39.9 Unspecified symptoms and signs involving the genitourinary system (principal)
CPT/HCPCS: 81003

== ENCOUNTER 2025-09-30 11:50 | Outpatient (REF) | payer MEDICARE, SELFPAY ==
--- OUTSIDE RECORDS SUMMARY | 2025-09-30 11:54 | XMS_ITS | Clinical Summary ---
Author Organization [employer] tem Address [facility]-[id number] [place] [address] Care Team Providers Care Auth Specialist Name Role Phone Niurka Arellano MD Primary Care Provider [phone] Allergies No known active allergies Medications MedicationSigDispense QuantityRefillsLast FilledStart DateEnd DateStatus verapamil SR (CALAN-SR) 240 mg CR tablet Take 240 mg by mouth nightly.Active multivit-minerals/ferrous fum (MULTI VITAMIN ORAL) Take 3 tablets by mouth 2 (two) times a day.Active CALCIUM CITRATE ORAL Take 2 tablets by mouth daily.Active garlic capsule Take 2 tablets by mouth daily.Active omega-3s/dha/epa/fish oil (OMEGA 3 ORAL) Take 2 tablets by mouth daily.Active glucosamine HCl/chondroitin bauer (GLUCOSAMINE-CHONDROITIN) 750-600 mg tablet,chewable Chew 4 tablets and swallow daily.Active ubidecarenone/red yeast rice (CO Q10-RED YEAST RICE ORAL) Take 4 capsules by mouth daily.Active Active Problems ProblemNoted DateDiagnosed DateHistory of colon wnfcco9404/27/2019Family history of colon cancer in tifwql8304/27/2019 Family History Medical HistoryRelationNameCommentsHeart diseaseBrother 1CancerFatherProstate cancerFatherColon cancerMotherBreast cancerNiece 1Breast cancerNiece 2Relation NameStatusCommentsBrother 1DeceasedBrother 2DeceasedDaughter 1AliveDaughter 2 AliveDaughter 3AliveFatherDeceasedMaternal GrandfatherDeceasedMaternal GrandmotherDeceasedMotherDeceasedNiece 1AliveNiece 2AlivePaternal Grandfather DeceasedPaternal GrandmotherDeceasedSister 1AliveSister 2AliveSon 1AliveSon 2 Alive Social History Tobacco UseTypesPacks/DayYears UsedDateSmoking Tobacco: NeverSmokeless Tobacco: NeverAlcohol UseStandard Drinks/WeekCommentsYes0 (1 standard drink = 0.6 oz pure alcohol)occassionalChildcareAnswerDate YnjntbuqWwffqlrxlXrajxua66/10/2019 EmploymentAnswerDate VdzqpjpoJerkizgyqiMwuyvls76/10/2019Purpose - LifeAnswerDate RecordedPurpose and direction in esbuXvfotvm22/11/2021CommentsNoSex and Gender InformationValueDate RecordedSex Assigned at BirthNot on fileLegal Sex Txuoxf0406/22/2015 11:24 AM EDTGender IdentityNot on fileSexual OrientationNot on file Last Filed Vital Signs Vital SignReadingTime TakenCommentsBlood Lcfrgaqd858/55006/25/2019 11:00 AM EDT Sgegk1526/09/2019 11:00 AM APAByfjofbprrn40.7 ??C (98 ??F)06/25/2019 9:13 AM EDT Respiratory Hqsy344306/25/2019 10:45 AM EDTOxygen Rfleyhopqf95%06/25/2019 11:00 AM EDTInhaled Oxygen Concentration--Sointf52.5 kg (140 lb)10/10/2023 8:57 AM EST Esowlk066.8 cm (5' 4.5 )10/10/2023 8:57 AM ESTBody Mass Index23.6610/10/2023 8:57 AM EST Plan of Treatment DateTypeDepartmentCare Team (Latest Contact Info)Trbztjgssjt74/28/2025 9:30 AM ESTAppointment [facility] [address] [place] [address] Health MaintenanceDue DateLast DoneCommentsDepression Bgwiovufg70/06/1957Tobacco Qlxzaetqy41/06/1957Fall Risk Rjhtbsalx13/06/2010RSV ( or age 60+ yrs) (1 - 1-dose 75+ series)01/21/2020Zoster (Shingles) Vaccine (3 of 3)01/25/2021 11/30/2020, 06/26/2017, 09/13/20103463Demcedgskkr81, 06/25/2019, 04/25/2014, Additional history existsCOVID-19 Vaccine ( - season) /09/2022, 01/12/2021, 12/15/2020Influenza Gisrvmh5307/18/2025 10/05/2024, 09/02/2023, 09/02/2022, Additional history existsDTaP,Tdap and Td Vaccines (3 - Td or Tdap), 11/17/2009, 11/17/2009 Medical Devices ImplantedTypeAreaManufacturerDevice IdentifierShelf Expiration DateModel / Serial / LotLens 24.0 Diopter - [id number] - [id number] Implanted:Qty: 1 on 10/29/2017 by Jenna Eldridge MD at [facility]: [id number] / [id number] / NALens 24.0 Diopter - [id number] - [id number] Implanted:Qty: 1 [facility] 11/11/[facility] [id number] / [id number] / NA Procedures Procedure NamePriorityDate/TimeAssociated DiagnosisCommentsCOLONOSCOPYRoutine 03/31/2009from Last 3 Months or Most Recently Relevant to Health Maintenance Results * Colonoscopy (03/31/2009) Narrative Authorizing ProviderResult TypeResult StatusScanning Provider ExternalGI PROCEDURE ORDERABLESFinal ResultPerforming OrganizationAddressCity/State/ZIP CodePhone Number [facility] [address] [place] [address] from Last 3 Months or Most Recently Relevant to Health Maintenance Insurance Care Teams Team MemberRelationshipSpecialtyStart DateEnd Niurka Arellano MD [address] [place] [address] PCP - GeneralFamily Medicine07/02/17
--- OUTSIDE RECORDS SUMMARY | 2025-09-30 11:54 | XMS_ITS | Encounter Summary ---
Author Organization [facility] Address [address] [facility] [place] [address] Care Team Providers Care Singe Winder Name Role Phone Niurka Arellano MD Unavailable [phone] Niurka Arellano MD Primary Care Provider [phone] Stefania Sanchez COMPOTYPE OPERATOR Unavailable [phone] Encounter Details DateTypeDepartmentCare Team (Latest Contact Info)Ahnonmuyklf26/04/2025Patient Outreach [facility] [address] [place] [address] Niurka Edwards, RN [address] [place] [address] Social History Tobacco UseTypesPacks/DayYears UsedDateSmoking Tobacco: NeverSmokeless Tobacco: NeverAlcohol UseStandard Drinks/WeekCommentsNot Currently0 (1 standard drink = 0.6 oz pure alcohol)Caffeine intake: 1-2 rfdhY0151 Health LiteracyAnswerDate RecordedHow often do you need to have someone help you when you read instructions, pamphlets, or other written material from your doctor or pharmacy? Tnafwy6006/16/2025Humiliation, Afraid, Rape, and Kick questionnaireAnswerDate RecordedWithin the last year, have you been afraid of your partner or ex-partner?No06/16/2025Within the last year, have you been humiliated or emotionally abused in other ways by your partner or ex-partner?No06/16/2025 Within the last year, have you been kicked, hit, slapped, or otherwise physically hurt by your partner or ex-partner?No06/16/2025Within the last year, have you been raped or forced to have any kind of sexual activity by your part ner or ex-partner?No06/16/2025Social Connection and Isolation PanelAnswerDate RecordedIn a typical week, how many times do you talk on the phone with family, friends, or neighbors?More than three times a week06/16/2025How often do you get together with friends or relatives?Three times a week06/16/2025How often do you attend baptist or scientology services?More than 4 times per year06/16/2025Do you belong to any clubs or organizations such as baptist groups, unions, fraternal or athletic groups, or school groups?Yes06/16/2025How often do you attend meetings of the clubs or organizations you belong to?More than 4 times per year06/16/2025 Are you , , , , never , or living with a partner?Znlxkyq4806/16/2025UDIT-CAnswerDate RecordedQ1: How often do you have a drink containing alcohol?2-4 times a month06/16/2025Q2: How many drinks containing alcohol do you have on a typical day when you are drinking?Patient xylmxerw56/31/2025Q3: How often do you have six or more drinks on one occasion? Never06/16/2025Overall Financial Resource Strain (CARDIA)AnswerDate RecordedHow hard is it for you to pay for the very basics like food, housing, medical care, and heating?Not hard at all06/16/2025PHQ-2AnswerDate RecordedPatient Health Questionnaire-2 Saald589Fincentral [facility] medical center [place] of Occupational [facility] - Occupational Stress QuestionnaireAnswerDate RecordedDo you feel stress - tense, restless, nervous, or anxious, or unable to sleep at night because yourmind is troubled all the time - these days?Only a fziikz5006/16/2025Exercise Vital Sign AnswerDate RecordedOn average, how many days per week do you engage in moderate to strenuous exercise (like a brisk walk)?3 days06/16/2025On average, how many minutes do you engage in exercise at this level?40 min06/16/2025Hunger Vital SignAnswerDate RecordedWithin the past 12 months, you worried that your food would run out before you got the money to buymore.Never true06/16/2025Within the past 12 months, the food you bought just didn't last and you didn't have money to get more.Never true06/16/2025PRAPARE - TransportationAnswerDate RecordedIn the past 12 months, has lack of transportation kept you from medical appointments or from getting medications?No06/16/2025In the past 12 months, has lack of transportation kept you from meetings, work, or from getting things needed for daily living?No06/16/2025Housing Stability Vital SignAnswerDate RecordedIn the last 12 months, was there a time when you were not able to pay the mortgage or rent on time?No03/04/2024Number of Places Lived in the Last Year Not on file03/04/2024In the last 12 months, was there a time when you did not have a steady place to sleep or slept in gardinerelter (including now)?No03/04/2024 Housing Stability Vital SignAnswerDate RecordedIn the last 12 months, was there a time when you were not able to pay the mortgage or rent on time?No06/16/2025 Number of Times Moved in the Last YearNot on file06/16/2025t any time in the past 12 months, were you homeless or living in a nursing home (including now)?No 06/16/2025CommentsNoSex and Gender InformationValueDate RecordedSex Assigned at BirthNot on fileLegal HwpPuwowo06/15/2023 7:01 PM EDTGender Identity Gvhpbx2201/29/2023 7:01 PM EDTSexual OrientationNot on filedocumented as of this encounter Progress Notes * Niurka Edwards RN - 09/20/2025 10:27 AM EST Rec incoming vm message from pt: JohnDelia, this is Muna Garland. You told me to get back to you. If I had not received from [employer] for scheduling my mammogram, I have not received or heard anything. However, I did receive a text yesterday from [facility] wanted to schedule a mammogram, so I would prefer to go to me because I have had all mammograms done there and they have the history so I can be reached at [phone] excuse me, , thank you. <September 20, 2025, 10:27 - Niurka Edwards, RN> chart reviewed. Call to [facility], , asked to be transferred to centralized scheduling. Spoke with Kindra in scheduling. She reported they did get her mammorgram order - asked if she could reach out to pt to schedule. She will do so. documented in this encounter Plan of Treatment DateTypeDepartmentCare Team (Latest Contact Info)Fihpnceqcwb65/06/2026 9:00 AM EDTOffice Visit [facility] [address] [place] [address] Niurka Arellano MD [address] [place], [place] [id number] 09/21/2026 8:30 AM ESTProcedure Visit [facility] Emiliano HERNANDEZ [address] [place] [address] Diego Saldaña DO [address] [place] [address] documented as of this encounter Visit Diagnoses Not on filedocumented in this encounter Additional Health Concerns AssessmentNoted TimePHQ-9 Depression Total Score: 10:00 AM EDT documented as of this encounter Care Teams Team MemberRelationshipSpecialtyStart DateEnd Date Niurka Arellano MD [address] [place] [address] PCP - [facility]04/10/23 Niurka Arellano MD [address] [facility], [place] [address] PCP - GeneralFamily Medicine05/05/23 Stefania Sanchez NP [address] [place] [address] Nurse PractitionerFamily Medicine05/05/23documented as of this encounter
--- OUTSIDE RECORDS SUMMARY | 2025-09-30 11:55 | XMS_ITS | Clinical Summary ---
Author Organization [facility] Address [address] [place] [address] Care Team Providers Care Licensed Bondsman Name Role Phone Niurka Arellano MD Unavailable [phone] Niurka Arellano MD Primary Care Provider [phone] Stefania Sanchez PARALEGAL SUPERVISOR Unavailable [phone] Allergies No known active allergies Medications MedicationSigDispense QuantityRefillsLast FilledStart DateEnd DateStatus omega-3 (Fish Oil) 500 MG capsule OralActive co-enzyme Q-10 30 MG capsule 1 (one) time each day at the same time.Active calcium carbonate (Os-Alberto) 1250 (500 Ca) MG tablet every 12 (twelve) hours.Active Multiple Vitamin (multivitamin) capsule OrallyActive Saccharomyces boulardii (probiotic) 250 MG capsule OrallyActive Red Yeast Rice 600 MG capsule OrallyActive Glucosamine-Chondroitin 500-400 MG capsule 1 (one) time each day at the same time.Active loratadine (Claritin) 10 MG tablet Take by mouthActive lisinopril 10 MG tablet Indications:Primary hypertensionTAKE 1 TABLET BY MOUTH DAILY 90 tablet 5Active verapamil SR (Calan SR) 240 MG ER tablet Indications:Chronic nonintractable headache, unspecified headache typeTAKE 1 TABLET BY MOUTH DAILY 90 tablet 5Active fluticasone (Flonase) 50 MCG/ACT nasal spray Indications:Seasonal allergic rhinitis due to other allergic triggerAdminister 1 spray into each nostril Daily Shake gently. Before first use, prime pump. After use, clean tip and replace cap. 16 g /ctive Apoaequorin (PREVAGEN PO) Take by mouthActive ciprofloxacin (Cipro) 500 MG tablet Indications:Urinary Tract InfectionTake 1 tablet (500 mg) by mouth in the morning and 1 tablet (500 mg) before bedtime. Do all this for 14 days. 14 tablet /09/2025Expired metroNIDAZOLE (Flagyl) 500 MG tablet Indications:BV (bacterial vaginosis)Take 1 tablet (500 mg) by mouth in the morning and 1 tablet (500 mg) before bedtime. Do all this for 7 days. Do not drink alcohol while taking this medication. 14 tablet /03/2025Expired Active Problems ProblemNoted DateDiagnosed DateChronic ucfztfp5505/05/2023ecrease in appetite 05/05/20231903Quszydlxzjaua19/19/9149Keluyvxsyagcobswdkcw06/19/2023 Evrgizxkwxnqmmpymrw97/19/2023Low back pain05/05/20231621Zkkoxkwonb36/19/2023Other chronic pain05/05/2023ostmenopausal tejxtzcq79/19/2023rimary hypertension 05/05/2023 Assessment & Plan (06/21/2025 2:02 PM EDT): Continue medications- verapamil and lisinopril. Assessment & Plan (04/02/2024 12:22 PM EDT): Continue medications. Status post yssubcbupvnwyyyyj33/19/2023Family history of colon cancer in mother 04/27/2019History of colon mnpiay3204/27/2019 Resolved Problems ProblemNoted DateDiagnosed DateResolved DatePrimary hyperparathyroidism / Encounters DateTypeDepartmentCare LpboFcikruuvjpw50/04/2025Patient Outreach [facility] [address] [place] [phone] Niurka Lee RN 09/14/2025Telephone [facility] [address] [place] [address] [place] [address] Diego Saldaña DO 09/13/2025 8:30 AM EDTOffice Visit [facility] [address] [address] Diego Saldaña DO Well woman exam with routine gynecological exam; Encounter for screening mammogram for malignant neoplasm of breast; Urinary tract infection with hematuria, site mpocufbqhnp53/28/2025Patient Outreach [facility] [address] [place] [address] Niurka Lee RN 09/13/2025amboo flowsheet [facility] [address] [facility] [place] [phone] Diego Saldaña, from Last 3 Months Immunizations ImmunizationAdministration DatesNext DueInfluenza Whole09/10/2013,08/29/2010, 08/25/2009,09/04/2007Influenza, High Dose Seasonal, Preservative Free10/05/2024, 09/02/2023Influenza, High-dose Seasonal, Quadrivalent, Preservative Free 09/02/2018Influenza, injectable, qlfbuwzlsijz39/19/2018,08/26/2017Influenza, injectable, quadrivalent, preservative free09/02/2022,09/10/2021,09/04/2020, 09/16/2019,08/27/2017,10/03/2015Influenza, seasonal, pufwdzwvit32/19/2012, 08/29/2011Influenza, seasonal, injectable, preservative free08/28/2014Influenza, seasonal, intradermal, preservative free09/04/2015,09/02/2012Pneumococcal Conjugate PCV 13006/06/2016Pneumococcal Polysaccharide EMTG7817Td (adult), 5 Lf tetanus toxoid, preservative free, xybnnanm19/01/2010Tdap 07/20/2021,11/17/2009Zoster, Mjafuwnwora24/14/2021Zoster, live06/26/2017, 09/13/2010 Family History Medical HistoryRelationNameCommentsCancerFatherRJCancerMotherPegRelationName StatusCommentsDaughterAlive3 daughtersFatherRJDeceasedMotherPegDeceasedSonAlive2 sons Social History Tobacco UseTypesPacks/DayYears UsedDateSmoking Tobacco: NeverSmokeless Tobacco: Never Tobacco Cessation:Counseling Given: Not Answered Alcohol UseStandard Drinks/WeekCommentsNot Currently0 (1 standard drink = 0.6 oz pure alcohol)Caffeine intake: 1-2 vpocA6438 Health LiteracyAnswerDate Recorded How often do you need to have someone help you when you read instructions, pamphlets, or other written material from your doctor or pharmacy?Rarely 06/16/2025Humiliation, Afraid, Rape, and Kick questionnaireAnswerDate Recorded Within the last year, have you been afraid of your partner or ex-partner?No 06/16/2025Within the last year, have you been humiliated or emotionally abused in other ways by your partner or ex-partner?No06/16/2025Within the last year, have you been kicked, hit, slapped, or otherwise physically hurt by your partner or ex-partner?No06/16/2025Within the last year, have you been raped or forced to have any kind of sexual activity by your partner or ex-partner?No06/16/2025 Social Connection and Isolation PanelAnswerDate RecordedIn a typical week, how many times do you talk on the phone with family, friends, or neighbors?More than three times a week06/16/2025How often do you get together with friends or relatives?Three times a week06/16/2025How often do you attend buddhist or cheondoism services?More than 4 times per year06/16/2025Do you belong to any clubs or organizations such as buddhist groups, unions, fraternal or athletic bertin ups, or school groups?Yes06/16/2025How often do you attend meetings of the clubs or organizations you belong to?More than 4 times per year06/16/2025re you , , , , never , or living with a partner? Nvpqiby4206/16/2025UDIT-CAnswerDate RecordedQ1: How often do you have a drink containing alcohol?2-4 times a month06/16/2025Q2: How many drinks containing alcohol do you have on a typical day when you are drinking?Patient declined 06/16/2025Q3: How often do you have six or more drinks on one occasion?Never 06/16/2025Overall Financial Resource Strain (CARDIA)AnswerDate RecordedHow hard is it for you to pay for the very basics like food, housing, medical care, and heating?Not hard at all06/16/2025PHQ-2AnswerDate RecordedPatient Health Questionnaire-2 [facility] - Occupational Stress QuestionnaireAnswerDate RecordedDo you feel stress - tense, restless, nervous, or anxious, or unable to sleep at night because yourmind is troubled all the time - these days?Only a bwszuw5706/16/2025Exercise Vital Sign AnswerDate RecordedOn average, how many [...] steady place to sleep or slept in ashelter (including now)?No03/04/2024 Housing Stability Vital SignAnswerDate RecordedIn the last 12 months, was there a time when you were not able to pay the mortgage or rent on time?No06/16/2025 Number of Times Moved in the Last YearNot on file06/16/2025t any time in the past 12 months, were you homeless or living in a alf (including now)?No 06/16/2025CommentsNoSex and Gender InformationValueDate RecordedSex Assigned at BirthNot on fileLegal UqeGixjrq50/15/2023 7:01 PM EDTGender Identity Agjkjz3801/29/2023 7:01 PM EDTSexual OrientationNot on file Last Filed Vital Signs Vital SignReadingTime TakenCommentsBlood Kiolkzmz416/8010 8:43 AM EDT Gmerw614506/21/2025 9:36 AM SUMFfudekkpkxg73.8 ??C (98.3 ??F)11/30/2024 1:02 PM ESTRespiratory Rate--Oxygen Ykicerxgyv07%06/21/2025 9:36 AM EDTInhaled Oxygen Concentration--Adurds97 kg (143 lb 4 oz)09/13/2025 8:43 AM EIBRmosbp851.6 cm (5' 4 )06/21/2025 9:36 AM EDTBody Mass Index24.5908 9:36 AM EDT Plan of Treatment DateTypeDepartmentCare Team (Latest Contact Info)Gqtweleobfk33/06/2026 9:00 AM EDTOffice Visit [facility] [address] [place] [phone] Niurka Arellano MD [address] [facility] [address] [place], [place] [phone] 09/21/2026 8:30 AM ESTProcedure Visit [facility] [address] [place] [address] Diego Saldaña, [address] [place] [address] Health MaintenanceDue DateLast DoneCommentsCOVID-19 Vaccine (2024- season) 505/09/2022, 01/12/2021, 12/15/2020Medicare Annual Wellness (AWV) 8/03/2025, 04/02/2024, 02/14/2023, Additional history exists Pneumococcal Vaccine: 65+ EkfogPlmjmxhpt67/21/2016, 08/29/2011Influenza Vaccine Fsmqecxgn60/21/2025, 10/05/2024, 09/02/2023, Additional history exists Procedures Procedure NamePriorityDate/TimeAssociated DiagnosisCommentsRECURRENT VAGINITIS (HTRX)Vmcfmrk2809/13/2025 9:27 AM EDT POCT URINALYSIS TUVWZGNIYpndupp35/28/2025 8:52 AM EDT Urinary tract infection with hematuria, site unspecified from Last 3 Months Results * (ABNORMAL) RECURRENT VAGINITIS (HTRX) (09/13/2025 9:27 AM EDT)ComponentValue Ref RangeTest MethodAnalysis TimePerformed AtPathologist SignatureATOPOBIUM HCTXOOP436.961 - 24.689 ppm09/14/2025 6:41 AM EDTHealthTrackRx at [facility]St[facility] ATOPOBIUM VAGINAENot Lwwcdntk97.961 - 24.689 ppm09/14/2025 6:41 AM EDT [facility]St[facility] IndianapolisBVAB 2,3 (BACTERIAL VAGINOSIS ASSOCIATED BACTERIA 2, 3); MOBILUNCUS SPP26.378(A)19.961 - 24.689 ppm09/14/2025 6:41 AM EDT [facility] LabPortBVAB 2,3 (BACTERIAL VAGINOSIS ASSOCIATED BACTERIA 2, 3); MOBILUNCUS SPPDetected(A)19.961 - 24.689 ppm09/14/2025 6:41 AM EDT [facility] LabPortCANDIDA ALBICANS, PARAPSILOSIS, EWOISYWUKD782.000 - 30.347 ppm09/14/2025 6:41 AM EDTHealthTrackRx at LabPortCANDIDA ALBICANS, PARAPSILOSIS, TROPICALISNot Lxvfrlwb41.000 - 30.347 ppm09/14/2025 6:41 AM EDT [facility] LabPortCANDIDA VJPOIZYO348.000 - 31.618 ppm09/14/2025 6:41 AM EDTHealthTrackRx at LabPortCANDIDA GLABRATANot Vfeaejxa30.000 - 31.618 ppm 09/14/2025 6:41 AM EDTHealthTrackRx at LabPortCANDIDA VXTSHR150.000 - 30.873 ppm09/14/2025 6:41 AM EDTHealthTrackRx at LabPortCANDIDA KRUSEINot Detected 23.000 - 30.873 ppm09/14/2025 6:41 AM EDTHealthTrackRx at LabPortCHLAMYDIA OJOAFQOPUWL121.000 - 31.586 ppm09/14/2025 6:41 AM EDTHealthTrackRx at LabPort CHLAMYDIA TRACHOMATISNot Vibbnfkh76.000 - 31.586 ppm09/14/2025 6:41 AM EDT [facility] LabPortGARDNERELLA KVAAYQEWY263.961 - 24.689 ppm09/14/2025 6:41 AM EDTHealthTrackRx at LabPortGARDNERELLA VAGINALISNot Qhhgprns03.961 - 24.689 ppm09/14/2025 6:41 AM EDTHealthTrackRx at LabPortMEGASPHAERA (TYPES 1, 2)019.961 - 24.689 ppm09/14/2025 6:41 AM EDTHealthTrackRx at LabPort MEGASPHAERA (TYPES 1, 2)Not Fblpyajg24.961 - 24.689 ppm09/14/2025 6:41 AM EDT [facility] LabPortNEISSERIA NXQRPOGLWDU339.000 - 32.587 ppm09/14/2025 6:41 AM EDTHealthTrackRx at LabPortNEISSERIA GONORRHOEAENot Qszurndz58.000 - 32.587 ppm10 6:41 AM EDTHealthTrackRx at LabPortTRICHOMONAS VAGINALIS0 23.000 - 31.995 ppm09/14/2025 6:41 AM EDTHealthTrackRx at LabPortTRICHOMONAS VAGINALISNot Ebnvtceo23.000 - 31.995 ppm09/14/2025 6:41 AM EDTHealthTrackRx at LabPortMYCOPLASMA WGUQOUUZWO214.961 - 24.689 ppm09/14/2025 6:41 AM EDT [facility] at LabPortMYCOPLASMA GENITALIUMNot Qjkoncpd39.961 - 24.689 ppm 09/14/2025 6:41 AM EDTHealthTrackRx at LabPortSpecimen (Source)Anatomical Location / LateralityCollection Method / VolumeCollection TimeReceived Time Xbkqpj7309/13/2025 9:27 AM EDT1 1:26 AM EDT Narrative Authorizing ProviderResult TypeResult StatusCorey Piotr DOLAB BLOOD ORDERABLES Final ResultPerforming OrganizationAddressCity/State/ZIP CodePhone Number [facility] at LabPort [address] [facility] [address] [place] [address] * (ABNORMAL) POCT urinalysis dipstick manually resulted (09/13/2025 8:52 AM EDT) ComponentValueRef RangeTest MethodAnalysis TimePerformed AtPathologist SignatureColor, UAYellowClarity, UAClearGlucose, UANegativeNegative - 2000(110) ++++ mg/dLBilirubin, UANegativeNegative - 4(70) +++ mg/dLKetones, UA NegativeNegative - 160(16) ++++ mg/dLSpec Grav, UA1.0101 - 1.03Blood, UA PositiveNegative - 50 Andres/mcLComment:2+pH, UA6.55 - 9Protein, UANegative Negative - 2000(20) ++++ mg/dLUrobilinogen, UA0.20.2 - 12 mg/dLLeukocytes, UA PositiveNegative - 500+++ Brent/mcLComment:TraceNitrite, UANegativeNegative - PositiveSpecimen (Source)Anatomical Location / LateralityCollection Method / VolumeCollection TimeReceived JcdhNnthi59/28/2025 8:52 AM EDT Narrative Authorizing ProviderResult TypeResult StatusCorey Piotr DOPOINT OF CARE TEST ENTER/EDIT ORDERABLESFinal Result from Last 3 Months Insurance Care Teams Team MemberRelationshipSpecialtyStart DateEnd Date Niurka Arellano MD [address] [facility] [place] [address] PCP - [facility]04/10/23 Niurka Arellano MD [address] [facility] [place] [address] [facility] - [facility]05/05/23 Stefania Sanchez NP [address] [place] [address] Nurse PractitionerKeokuk County Health Centerly Medicine05/05/23
[2025-09-30 12:42] LABS: Glucose Urine UA NEGATIVE (NEGATIVE)
[2025-09-30 13:11] LABS: Cast Seen? NONE SEEN #/LPF (NONE SEEN); Crystals Seen? None Seen #/HPF (None Seen)
== END 2025-09-30 11:51 | disposition home or self-care (01) ==
LOC: LAB 11:50
PROVIDERS: Visit Provider Obstetrics & Gynecology
DX: N39.0 Urinary tract infection, site not specified (principal); R31.9 Hematuria, unspecified
CPT/HCPCS: 81001